=== PATIENT | female | born 1965 | race Caucasian/White ===

== ENCOUNTER 2016-04-24 05:37 | Emergency (ER) | payer MEDICAID ==
[2016-04-24] MEDS ORDERED: ONDANSETRON 4 MG/2 ML VIAL IVP ONE (05:44)
[2016-04-24] MEDS ORDERED: NS 1,000 ML IV ONE (05:44)
--- NOTE | 2016-04-24 05:50 | EDPHY ---
H & P HPI/ROS: HPI CHIEF COMPLAINT: Nausea vomiting and lower abdominal cramping HISTORY OF PRESENT ILLNESS: This patient very pleasant 50-year-old female significant past medical history for hypertension, hyperlipidemia, bipolar disorder, anxiety, presents to the emergency room with nausea, vomiting, and waves of abdominal cramping without diarrhea that started around 8:30 p.m. last night. Patient states throughout the night she has had ongoing abdominal cramping this evening. Patient tells me that she was having abdominal cramping all night. She has associated nausea with nonbilious vomiting no hematemesis. Denies fever. Denies chest pain or shortness of breath. She decided come into the emergency room by EMS due to ongoing abdominal cramping. Upon arrival here she tells me it actually has resolved. She does still feel nauseous. Past Medical History: Hypertension, hyperlipidemia, bipolar disorder, anxiety Past Surgical History: No recent abdominal surgeries Social History: denies daily use of drugs alcohol tobacco products Family History: Noncontributory ROS REVIEW OF SYSTEMS: A comprehensive 10 point review of systems is otherwise negative aside from elements mentioned in the history of present illness. Exam Constitutional triage nursing summary reviewed, vital signs reviewed, awake/ alert. Eyes normal conjunctivae and sclera, EOMI, PERRLA. HENT normal inspection, atraumatic, moist mucus membranes, no epistaxis, neck supple/ no meningismus, no raccoon eyes. Respiratory clear to auscultation bilaterally, normal breath sounds, no respiratory distress, no wheezing. Cardiovascular rate normal, regular rhythm, no murmur, no edema, distal pulses normal. Gastrointestinal soft, mild tenderness palpation and lower abdomen , no rebound, no guarding, normal bowel sounds, no distension, no pulsatile mass. Genitourinary no CVA tenderness. Musculoskeletal no midline vertebral tenderness, full range of motion, no calf swelling, no tenderness of extremities, no meningismus, good pulses, neurovascularly intact. Skin pink, warm, & dry, no rash, skin atraumatic. Neurologic awake, alert and oriented x 3, AAOx3, moves all 4 extremities equally, motor intact, sensory intact, CN II-XII intact, normal cerebellar, normal vision, normal speech. Psychiatric normal mood/affect. Heme/Lymph/Immune no lymphadenopathy. Differential diagnosis includes but is not limited to and in no particular order : Bowel obstruction, appendicitis, gallbladder disease, diverticulitis, colitis , enteritis, perforated viscus, gastritis, GERD, esophagitis, urinary tract infection, pyelonephritis, kidney stones Medical Decision Making: This patient had an IV established obtain blood work, patient be hydrated with IV fluids, IV Zofran 4 mg ordered for nausea. Will check abdominal labs, she will need a CT scan of her abdomen pelvis with IV contrast rule out acute appendicitis. Re-evaluation: CT scan of the abdomen pelvis with IV contrast. The results of the study are shows kidney stones with hydroureter on the left, 3 mm mild hydro, her also renal calculi in the parenchyma of the kidneys, otherwise constipation The study was read by Dr. Ricketts I viewed the images myself on the PACS system. Source: Patient, EMS - Personal History Tetanus Vaccine Date: < 10 years - Medical/Surgical History Hx Asthma: Yes Hx Chronic Respiratory Disease: No Hx Diabetes: No Hx Cardiac Disease: Yes Hx Renal Disease: No Hx Cirrhosis: No Hx Alcoholism: No Hx HIV/AIDS: No Hx Splenectomy or Spleen Trauma: No Other PMH: HTN, confusion, uterine plyp removal, bilateral eye Lasik, depression , pre-eclampsia - Social History Smoking Status: Former smoker Constitutional: Initial Vital Signs Temperature (C) 36.4 C 04/24/16 05:40 Heart Rate 79 04/24/16 05:40 Respiratory Rate 18 04/24/16 05:40 Blood Pressure 126/86 H 04/24/16 05:40 O2 Sat (%) 99 04/24/16 05:40 O2 Delivery Mode Room Air Allergies/Adverse Reactions: Milk Containing Products [dairy] Allergy (Verified 04/24/16 05:52) Home Medications: Medication Instructions Recorded Albuterol [Ventolin Hfa Inhaler] 2 puffs IH DAILY PRN #0 mdi 07/31/15 Cyclobenzaprine [Flexeril 10 MG 10 mg PO TID PRN #0 tab 07/31/15 (*)] Fluticasone Nasal [Flonase Nasal 2 sprays EACH[place]ARE DAILY #0 mdi 07/31/15 [place]] Ibuprofen [Motrin (*)] 600 mg PO Q6 PRN #0 tab 07/31/15 [place] Carbonate [[place] 600 mg PO BID #120 cap 07/31/15 Carbonate Cap 300 mg (*)] Melatonin [Melatonin 3 MG (*)] 3 mg PO HS #0 tab 07/31/15 OLANZapine DISINTEGR [ZyPREXA 20 mg PO HS #30 tab 07/31/15 ZYDIS (*)] Hydrocodone/APAP 5/325 [[place] 1 - 2 tab PO Q4H PRN #10 tab 04/24/16 5/325] Ondansetron HCl [Zofran] 4 mg PO Q4-6PRN PRN #10 tablet 04/24/16 Medical Decision Making - Data Points Laboratory Results: Laboratory Results 04/24/16 06:00 04/24/16 06:00 04/24/16 04/24/16 04/24/16 06:00 06:00 06:00 WBC 7.47 10^3/uL 10^3/uL (3.80-9.50) RBC 4.87 10^6/uL 10^6/uL (4.18-5.33) Hgb 14.6 g/dL g/dL (12.6-16.3) Hct 40.4 % % (38.0-47.0) MCV 83.0 fL fL (81.5-99.8) MCH 30.0 pg pg (27.9-34.1) MCHC 36.1 g/dL g/dL (32.4-36.7) RDW 11.9 % % (11.5-15.2) Plt Count 287 10^3/uL 10^3/uL (150-400) MPV 10.2 fL fL (8.7-11.7) Neut % (Auto) 75.8 % H % (39.3-74.2) Lymph % (Auto) 19.8 % % (15.0-45.0) [place] % (Auto) 3.6 % L % (4.5-13.0) Eos % (Auto) 0.0 % L % (0.6-7.6) Baso % (Auto) 0.5 % % (0.3-1.7) Nucleat RBC Rel Count 0.0 % % (0.0-0.2) Absolute Neuts (auto) 5.66 10^3/uL 10^3/uL (1.70-6.50) Absolute Lymphs (auto) 1.48 10^3/uL 10^3/uL (1.00-3.00) Absolute Monos (auto) 0.27 10^3/uL L 10^3/uL (0.30-0.80) Absolute Eos (auto) 0.00 10^3/uL L 10^3/uL (0.03-0.40) Absolute Basos (auto) 0.04 10^3/uL 10^3/uL (0.02-0.10) Absolute Nucleated RBC 0.00 10^3/uL 10^3/uL (0-0.01) Immature Gran % 0.3 % % (0.0-1.1) Immature Gran # 0.02 10^3/uL 10^3/uL (0.00-0.10) Sodium 145 mEq/L H mEq/L (134-144) Potassium 3.9 mEq/L mEq/L (3.5-5.2) Chloride 107 mEq/L mEq/L (97-110) Carbon Dioxide 25 mEq/l mEq/l (22-31) Anion Gap 13 mEq/L mEq/L (8-16) BUN 18 mg/dL mg/dL (7-23) Creatinine 0.8 mg/dL mg/dL (0.6-1.0) Estimated GFR > 60 Glucose 140 mg/dL H mg/dL (70-100) Calcium 10.4 mg/dL mg/dL (8.5-10.4) Total Bilirubin 0.7 mg/dL mg/dL (0.1-1.4) Conjugated Bilirubin 0.2 mg/dL mg/dL (0.0-0.5) Unconjugated Bilirubin 0.5 mg/dL mg/dL (0.0-1.1) AST 21 IU/L IU/L (14-46) ALT 29 IU/L IU/L (9-52) Alkaline Phosphatase 74 IU/L IU/L (38-126) Total Protein 7.2 g/dL g/dL (6.3-8.2) Albumin 4.7 g/dL g/dL (3.5-5.0) Lipase 110.0 IU/L IU/L (23-300) Beta HCG, Qual NEGATIVE Medications Given: Discontinued Medications Sodium Chloride (Ns) 1,000 mls @ 0 mls/hr IV ONCE ONE PRN Reason: Wide Open Stop: 04/24/16 05:45 Last Admin: 04/24/16 06:03 Dose: 1,000 mls Ondansetron HCl (Zofran) 4 mg IVP EDNOW ONE Stop: 04/24/16 05:45 Last Admin: 04/24/16 06:07 Dose: Not Given Departure - Departure Disposition: Home, Routine, Self-Care Clinical Impression: Kidney stone Nausea and vomiting Qualifiers: Vomiting type: unspecified Vomiting Intractability: non-intractable Qualified Code(s): R11.2 - Nausea with vomiting, unspecified Condition: Good Instructions: Kidney Stones (ED), Renal Colic (ED), Acute Nausea and Vomiting ( ED) Additional Instructions: 1. Return emergency room if he develops worsening symptoms includes worsening abdominal pain, fever, vomiting Referrals: Patient,NotPresent [Unknown] - As per Instructions Rebel Garcia MD [Medical Doctor] - As per Instructions Prescriptions: Hydrocodone/APAP 5/325 [[place] 5/325] 1 - 2 tab PO Q4H PRN #10 tab PRN Reason: Pain, Moderate Ondansetron HCl [Zofran] 4 mg PO Q4-6PRN PRN #10 tablet PRN Reason: Nausea/Vomiting, Use 1st
[2016-04-24 05:52] VITALS: TEMP 97.5
[2016-04-24 06:14] LABS: % IMMATURE GRANULYOCYTES 0.3 % (0.0-1.1); ABSOLUTE IMMATURE GRANULOCYTES 0.02 10^3/uL (0.00-0.10); ADD DIFF? NO; ADD MORPH? NO; ADD SCAN? NO; ATYPICAL LYMPHOCYTE FLAG 10 (0-99); FRAGMENT RBC FLAG 0 (0-99); HEMATOCRIT 40.4 % (38.0-47.0); HEMOGLOBIN 14.6 g/dL (12.6-16.3); LEFT SHIFT FLG 0 (0-99); LIPEMIA HEMOLYSIS FLAG 90 (0-99); MEAN CELL HEMOGLOBIN CONCENTR. 36.1 g/dL (32.4-36.7); MEAN PLATELET VOLUME 10.2 fL (8.7-11.7); PLATELET CLUMPS FLAG 0 (0-99); PLATELET COUNT 287 10^3/uL (150-400); RED BLOOD CELL COUNT 4.87 10^6/uL (4.18-5.33); RED CELL DISTRIBUTION WIDTH 11.9 % (11.5-15.2)
[2016-04-24] MEDS ORDERED: IOPAMIDOL (ISOVUE-300) 100 ML BTL IV ONE (06:40)
[2016-04-24 06:43] LABS: ALANINE AMINOTRANSFERASE 29 IU/L (9-52); ALBUMIN 4.7 g/dL (3.5-5.0); ALKALINE PHOSPHATASE 74 IU/L (38-126); ANION GAP 13 mEq/L (8-16); ASPARTATE AMINOTRANSFERASE 21 IU/L (14-46); BILIRUBIN,TOTAL 0.7 mg/dL (0.1-1.4); BILIRUBIN-CONJUGATED 0.2 mg/dL (0.0-0.5); BILIRUBIN-UNCONJUGATED 0.5 mg/dL (0.0-1.1); CALCIUM 10.4 mg/dL (8.5-10.4); CARBON DIOXIDE 25 mEq/l (22-31); CHLORIDE 107 mEq/L (97-110); CREATININE 0.8 mg/dL (0.6-1.0); GLOMERULAR FILTRATION RATE > 60; GLUCOSE 140 mg/dL (70-100); POTASSIUM 3.9 mEq/L (3.5-5.2); SODIUM 145 mEq/L (134-144); TOTAL PROTEIN 7.2 g/dL (6.3-8.2)
[2016-04-24 07:38] LABS: COLOR YELLOW; LEUKOCYTE ESTERASE,URINE NEGATIVE (NEGATIVE); NITRITE,URINE NEGATIVE (NEGATIVE)
[2016-04-24 08:40] VITALS: BP 96/71; PULSE 78; RESP 16; O2SAT 96
== END 2016-04-24 08:42 | disposition home or self-care (01) ==
LOC: EDUNIT#
DX: R11.2 Nausea with vomiting, unspecified (principal); N20.0 Calculus of kidney; J45.909 Unspecified asthma, uncomplicated; I10 Essential (primary) hypertension; Z87.891 Personal history of nicotine dependence
CPT/HCPCS: Q9967

== ENCOUNTER 2016-08-05 19:18 | Emergency (ER) | payer MEDICAID ==
[2016-08-05] MEDS ORDERED: LORazepam 1 MG TAB PO ONE (19:52)
[2016-08-05 20:06] LABS: % IMMATURE GRANULYOCYTES 0.2 % (0.0-1.1); ABSOLUTE IMMATURE GRANULOCYTES 0.02 10^3/uL (0.00-0.10); ADD DIFF? NO; ADD MORPH? NO; ADD SCAN? NO; ATYPICAL LYMPHOCYTE FLAG 20 (0-99); FRAGMENT RBC FLAG 0 (0-99); HEMATOCRIT 38.4 % (38.0-47.0); HEMOGLOBIN 13.2 g/dL (12.6-16.3); LEFT SHIFT FLG 0 (0-99); LIPEMIA HEMOLYSIS FLAG 90 (0-99); MEAN CELL HEMOGLOBIN 29.7 pg (27.9-34.1); MEAN CELL HEMOGLOBIN CONCENTR. 34.4 g/dL (32.4-36.7); MEAN CELL VOLUME 86.3 fL (81.5-99.8); MEAN PLATELET VOLUME 10.4 fL (8.7-11.7); PLATELET CLUMPS FLAG 0 (0-99); PLATELET COUNT 300 10^3/uL (150-400); RED BLOOD CELL COUNT 4.45 10^6/uL (4.18-5.33); RED CELL DISTRIBUTION WIDTH 12.1 % (11.5-15.2)
[2016-08-05 20:18] LABS: ANION GAP 12 mEq/L (8-16); CALCIUM 10.1 mg/dL (8.5-10.4); CARBON DIOXIDE 21 mEq/l (22-31); CHLORIDE 105 mEq/L (97-110); CREATININE 0.9 mg/dL (0.6-1.0); ETHANOL SERUM < 10 mg/dL (0-10); GLOMERULAR FILTRATION RATE > 60; GLUCOSE 122 mg/dL (70-100); POTASSIUM 3.9 mEq/L (3.5-5.2); SALICYLATE < 1.0 mg/dL (2.0-20.0); SODIUM 138 mEq/L (134-144)
[2016-08-05 20:20] LABS: LITHIUM < 0.2 mEq/L (0.6-1.2)
[2016-08-05] MEDS ORDERED: QUEtiapine FUMARATE 100 MG TAB ONE ×2 (20:25→23:38)
[2016-08-05] MEDS ORDERED: QUEtiapine FUMARATE 100 MG TAB PO ONE (20:31)
--- NOTE | 2016-08-05 20:31 | EDPHY ---
H & P Stated Complaint: M1-manic Exam Limitations: Clinical condition - Personal History Tetanus Vaccine Date: < 10 years - Medical/Surgical History Hx Asthma: Yes Hx Chronic Respiratory Disease: No Hx Diabetes: No Hx Cardiac Disease: Yes Hx Renal Disease: No Hx Cirrhosis: No Hx Alcoholism: No Hx HIV/AIDS: No Hx Splenectomy or Spleen Trauma: No Other PMH: HTN, confusion, uterine plyp removal, bilateral eye Lasik, depression , pre-eclampsia - Social History Smoking Status: Former smoker HPI/ROS: CHIEF COMPLAINT: M1, manic episode HISTORY OF PRESENT ILLNESS: Patient arrives by [employer] with an M1 in place from mental health professional. M1 documents manic episode with grandiose ideas and delusional thoughts. Patient is very animated, as flight of ideas and will not provide an accurate or reliable history. She denies feeling suicidal, but she does not provide any substantial or useful information. She is continually pacing and exiting the room. She will not cooperate any further, thus I cannot obtain any further history of present illness. PSYCHIATRIC DIAGNOSES: Bipolar disorder PRIOR PSYCHIATRIC EVALUATIONS: Uncertain M1/DETAINER: License mental health professional REVIEW OF SYSTEMS: Ten systems reviewed and are negative unless otherwise noted in the HPI EXAMINATION General Appearance: Alert, no distress, unkempt, animated with pressured speech Head: normocephalic, atraumatic Respiratory: No retractions or distress. Unable to auscultate due to patient refusal Cardiovascular: Unable to auscultate due to patient refusal Gastrointestinal: No obvious distention. Unable to palpate or auscultate due to refusal Back: No obvious lab Neurological: GCS 15. Unable to perform further neuro examination Skin: Warm and dry, no rash Extremities: Nontender, no pedal edema Psychiatric: Mood and affect normal DIFFERENTIAL DIAGNOSES: Including but not limited to manic episode, bipolar disorder, schizoaffective, schizophrenia, subtherapeutic lithium MDM: 8:05 p.m. Patient is here on an M1 hold due to apparent manic episode. She is not cooperating with my attempt to examine her at this time. She is pacing around the room and refusing to let me examine her. We discussed p.o. Ativan with the nurse, but the patient is declining. Will discuss further and proceed with intramuscular Zyprexa should she continue to refuse examination. Vital signs were stable and she is not physically combative at this time. 8:30 p.m. Laboratory studies are unremarkable. [place] level is subtherapeutic. She is cleared for mental health evaluation at this time. 9:30 p.m. Patient was administered 150 mg Seroquel. I am been requested to administer further medication as she continues to pace and seems to be agitated with staff. We discussed Zyprexa for the patient as we cannot verify if she takes any more than 150 mg of Seroquel , despite telling us that she does. She is not physically combative at this time. 10:30 p.m. Patient is currently be evaluated by EPS staff. 11:45 p.m. Notified by EPS staff that the patient is manic and they are recommending inpatient care. They are attempting to find placement at this time. 12:30 a.m. Patient still awaiting placement. She will likely placed in ATU level of care. She is resting comfortably at this time. At this time, Dr. Duque will assume care of this patient. Please see her note for disposition. SUPERVISION: Patient was evaluated in conjunction with the supervising physician. Please see their note for details. (Flo Olivarez) Constitutional: Initial Vital Signs Temperature (C) 99.1 F 08/05/16 19:28 Heart Rate 92 08/05/16 19:28 Respiratory Rate 20 08/05/16 19:28 Blood Pressure 142/107 H 08/05/16 19:28 O2 Sat (%) 96 08/05/16 19:28 O2 Delivery Mode Room Air Allergies/Adverse Reactions: Milk Containing Products [dairy] Allergy (Verified 08/05/16 19:27) Home Medications: Medication Instructions Recorded Albuterol [Ventolin Hfa Inhaler] 2 puffs IH DAILY PRN #0 mdi 07/31/15 Cyclobenzaprine [Flexeril 10 MG 10 mg PO TID PRN #0 tab 07/31/15 (*)] Fluticasone Nasal [Flonase Nasal 2 sprays [place] DAILY #0 mdi 07/31/15 [place]] Ibuprofen [Motrin (*)] 600 mg PO Q6 PRN #0 tab 07/31/15 [place] Carbonate [[place] 600 mg PO BID #120 cap 07/31/15 Carbonate Cap 300 mg (*)] Melatonin [Melatonin 3 MG (*)] 3 mg PO HS #0 tab 07/31/15 OLANZapine DISINTEGR [ZyPREXA 20 mg PO HS #30 tab 07/31/15 ZYDIS (*)] Hydrocodone/APAP 5/325 [[place] 1 - 2 tab PO Q4H PRN #10 tab 04/24/16 5/325] Ondansetron HCl [Zofran] 4 mg PO Q4-6PRN PRN #10 tablet 04/24/16 Quetiapine Fumarate [Seroquel] 08/05/16 Medical Decision Making ED Course/Re-evaluation: 6:30 a.m.- The patient continues to await placement at an ATU. During the course of my shift, she was given a dose of Ativan to help with sleep. At 7:00 a.m., the case will be signed out to the oncoming provider Dr. Connor. (Eda Duque ) Other Provider: The patient was evaluated and managed by the Physician Sales Representative [employer]/ Nurse Practitioner. I discussed the patient's presentation and course with the midlevel provider with them and agree with the evaluation. My co-signature indicates that I have reviewed this chart and I agree with the findings and plan of care as documented. I am the secondary supervising physician. (Donna Awad) I assumed care of the patient at 2:00 p.m. pending psychiatric disposition placement. Update at 8:30 p.m.: The patient has been accepted for inpatient psychiatric hospitalization at [facility] by Dr. Barr. I have filled out the EMTALA transfer form. (Garry Borges) - Data Points Laboratory Results: Laboratory Results 08/05/16 19:30 08/05/16 19:30 Medications Given: Discontinued Medications Lorazepam (Ativan) 1 mg PO EDNOW ONE Stop: 08/05/16 19:53 Last Admin: 08/05/16 20:31 Dose: Not Given Olanzapine (Zyprexa Zydis) 10 mg PO EDNOW ONE Stop: 08/06/16 01:37 Last Admin: 08/06/16 01:36 Dose: 10 mg Olanzapine (Zyprexa Zydis) 5 mg PO EDNOW ONE Stop: 08/06/16 09:09 Last Admin: 08/06/16 09:13 Dose: 5 mg Quetiapine Fumarate (Seroquel) 150 mg PO ONCE ONE Stop: 08/05/16 20:32 Last Admin: 08/05/16 20:34 Dose: 150 mg Quetiapine Fumarate (Seroquel) 150 mg PO EDNOW ONE Stop: 08/05/16 23:37 Last Admin: 08/05/16 23:45 Dose: 150 mg Quetiapine Fumarate (Seroquel) 300 mg PO EDNOW ONE Stop: 08/06/16 19:31 Last Admin: 08/06/16 19:31 Dose: 300 mg Departure - Departure Disposition: Other Psych, Not [place] Clinical Impression: Bipolar 2 disorder Condition: Good Referrals: Patient,NotPresent [Primary Care Provider] - As per Instructions
[2016-08-05] MEDS ORDERED: QUEtiapine FUMARATE 25 MG TAB PO ONE (23:36)
[2016-08-05 23:53] VITALS: O2SAT 98
[2016-08-06] MEDS ORDERED: OLANZapine DISINTEGR 10 MG TAB ONE (01:33)
[2016-08-06] MEDS ORDERED: OLANZapine DISINTEGR 10 MG TAB PO ONE (01:36)
[2016-08-06 08:01] VITALS: RESP 16
[2016-08-06] MEDS ORDERED: OLANZapine 5 MG TAB ONE ×2 (09:06→15:03)
[2016-08-06] MEDS ORDERED: OLANZapine DISINTEGR 5 MG TAB PO ONE (09:08)
[2016-08-06 18:20] VITALS: PULSE 62; TEMP 98.1
[2016-08-06] MEDS ORDERED: QUEtiapine FUMARATE 25 MG TAB PO ONE (18:52)
[2016-08-06] MEDS ORDERED: QUEtiapine FUMARATE 300 MG TAB PO ONE (19:30)
[2016-08-06 22:34] VITALS: BP 112/80
== END 2016-08-06 22:34 ==
DX: F31.81 Bipolar II disorder (principal); J45.909 Unspecified asthma, uncomplicated; I10 Essential (primary) hypertension; Z87.891 Personal history of nicotine dependence
CPT/HCPCS: 80305; G0480

== ENCOUNTER → 2018-07-17 | Outpatient (CLI) | payer MEDICAID | LOC: FIMAGING 14:06 ==

== ENCOUNTER → 2018-07-23 | Outpatient (CLI) | payer MEDICAID | LOC: FIMAGING 13:25 ==